=== PATIENT | male | born 1990 | race African-American/Black ===

== ENCOUNTER 2018-09-15 11:25 | Inpatient (IN) | payer SELFPAY ==
[~2018-09-15] VITALS: Ht 170.2 cm; Wt 75.7 kg
[~2018-09-15 11:25] MED LIST: CEPH-264 PO
[2018-09-15] MEDS ORDERED: IV NORMAL SALINE 1000ML BAG 1,000 ML IV SCH (11:58)
[2018-09-15] MEDS ORDERED: PROCHLORPERAZINE 10 MG/2 ML VIAL. IV ONE (12:00)
[2018-09-15] MEDS ORDERED: HYOSCYAMINE 0.125 MG TAB.RAPDIS PO ONE (12:00)
[2018-09-15 12:43] LABS: BILIRUBIN,URINE NEGATIVE (NEG); CLARITY,URINE CLEAR; COLOR,URINE YELLOW; NITRITE,URINE NEGATIVE (NEG); PROTEIN,URINE 100 mg/dL (NEG-TRACE); UROBILINOGEN,URINE 0.2 mg/dL (0.2 mg/dL)
[2018-09-15 12:43] LABS: BASO % 0 % (0-3); EOS % 0 % (0-3); HEMOGLOBIN 13.6 g/dL (13.0-17.5); LYMPH # 0.6 x10^3/uL (1.0-4.8); LYMPH % 5 % (24-48); MEAN CORPUSCULAR HEMOGLOBIN 27 pg (25-35); MEAN CORPUSCULAR HGB CONC 32 g/dL (31-37); MEAN CORPUSCULAR VOLUME 84 fL (79-100); MONO # 0.7 x10^3/uL (0.0-1.1); MONO % 6 % (0-9); NEUT # 10.8 x10^3uL (1.8-7.7); NEUT % 90 % (31-73); PLATELET COUNT 295 x10^3/uL (140-400); RED BLOOD COUNT 5.03 x10^6/uL (4.30-5.70); RED CELL DISTRIBUTION WIDTH 14.1 % (11.5-14.5); WHITE BLOOD COUNT 12.1 x10^3/uL (4.0-11.0)
[2018-09-15 12:49] LABS: CALCIUM 9.3 mg/dL (8.5-10.1); CREATININE 0.9 mg/dL (0.7-1.3); GFR 123.4
[2018-09-15 12:52] LABS: HYALINE CASTS, URINE FEW /HPF; SQUAMOUS EPITHELIAL CELL,UR FEW /LPF
[2018-09-15 12:52] LABS: PROTHROMBIN TIME PATIENT 11.1 SEC (11.7-14.0)
[2018-09-15 12:53] LABS: BACTERIA,URINE 0 /HPF (0-FEW); WBC,URINE 0 /HPF (0-4)
[2018-09-15 13:18] LABS: % ATYL 2 % (0-0); % BANDS 14 % (0-9); % LYMPHS 6 % (24-48); % MONOS 1 % (0-10); % SEGS 77 % (35-66); ALBUMIN 3.8 g/dL (3.4-5.0); HYPOCHROMIA SLIGHT; PLT ESTIMATE ADEQUATE (ADEQUATE); STOMATOCYTES FEW; TOTAL BILIRUBIN 0.5 mg/dL (0.2-1.0); TOTAL PROTEIN 7.5 g/dL (6.4-8.2)
--- NOTE | 2018-09-15 13:39 | PHYS DOC ---
Past Medical History Past Medical History: No Pertinent History Past Surgical History: No Surgical History Smoking: Cigarettes Alcohol Use: Occasionally Additional Information: 4 or 5 drinks, 2-3 days a week Drug Use: None Adult General Chief Complaint Chief Complaint: ABDOMINAL PAIN HPI HPI Patient is a 27 year old male who presents with upper abdominal pain and nausea for the past 24-36 hours. It has been getting worse over time. No radiation of the discomfort. Patient has been unable to tolerate any oral intake since approximately noon yesterday. No blood in the emesis. No diarrhea. Patient had a beer early on in the course of this with out any significant change in the discomfort.[] Review of Systems Review of Systems Constitutional: Denies fever or chills [] Eyes: Denies change in visual acuity, redness, or eye pain [] HENT: Denies nasal congestion or sore throat [] Respiratory: Denies cough or shortness of breath [] Cardiovascular: No chest pain or palpitations[] GI: See history of present illness[] : Denies dysuria or hematuria [] Musculoskeletal: Denies back pain or joint pain [] Integument: Denies rash or skin lesions [] Neurologic: Denies headache, focal weakness or sensory changes [] Endocrine: Denies polyuria or polydipsia [] All other systems were reviewed and found to be within normal limits, except as documented in this note. Current Medications Current Medications Current Medications Medications (Trade) Dose Ordered Sig/Rohith Start Time Stop Time Status Last Admin Dose Admin Hyoscyamine (Anaspaz) 0.125 mg ONCE ONCE 09/15/18 12:00 09/15/18 12:01 DC 09/15/18 12:28 0.125 MG Morphine Sulfate (Morphine Sulfate) 4 mg 1X ONCE 09/15/18 13:45 09/15/18 13:46 DC Prochlorperazine Edisylate (Compazine) 5 mg 1X ONCE 09/15/18 12:00 09/15/18 12:01 DC 09/15/18 12:29 5 MG Sodium Chloride 1,000 ml @ 125 mls/hr 1X ONCE 09/15/18 13:45 09/15/18 21:44 Allergies Allergies Allergies Coded Allergies Type Severity Reaction Last Updated Verified No Known Drug Allergies 06/20/16 No Physical Exam Physical Exam Constitutional: Well developed, well nourished, no acute distress, non-toxic appearance. [] HENT: Normocephalic, atraumatic, bilateral external ears normal, oropharynx moist, no oral exudates, nose normal. [] Eyes: PERRLA, EOMI, conjunctiva normal, no discharge. [] Neck: Normal range of motion, no tenderness, supple, no stridor. [] Cardiovascular:Heart rate regular rhythm, no murmur [] Lungs & Thorax: Bilateral breath sounds clear to auscultation [] Abdomen: Bowel sounds normal, soft, gastric tenderness, no rebound, no guarding , no rigidity, no masses, no pulsatile masses. [] Skin: Warm, dry, no erythema, no rash. [] Back: No tenderness, no CVA tenderness. [] Extremities: No tenderness, no cyanosis, no clubbing, ROM intact, no edema. [] Neurologic: Alert and oriented X 3, normal motor function, normal sensory function, no focal deficits noted. [] Psychologic: Affect normal, judgement normal, mood normal. [] Current Patient Data Vital Signs Vital Signs Date Time Temp Pulse Resp B/P (MAP) Pulse Ox O2 Delivery O2 Flow Rate FiO2 09/15/18 11:43 98.2 75 18 137/91 (106) 100 Room Air 98.2 Lab Values Laboratory Tests Test 09/15/18 12:20 09/15/18 12:30 Urine Collection Type Unknown Urine Color Yellow Urine Clarity Clear Urine pH 6.0 Urine Specific [place] >=1.030 Urine Protein 100 mg/dL (NEG-TRACE) Urine Glucose (UA) Negative mg/dL (NEG) Urine Ketones (Stick) Negative mg/dL (NEG) Urine Blood Negative (NEG) Urine Nitrite Negative (NEG) Urine Bilirubin Negative (NEG) Urine Urobilinogen Dipstick 0.2 mg/dL (0.2 mg/dL) Urine Leukocyte Esterase Negative (NEG) Urine RBC 3-5 /HPF (0-2) Urine WBC 0 /HPF (0-4) Urine Squamous Epithelial Cells Few /LPF Urine Bacteria 0 /HPF (0-FEW) Urine Hyaline Casts Few /HPF Urine Mucus Marked /LPF White Blood Count 12.1 x10^3/uL (4.0-11.0) H Red Blood Count 5.03 x10^6/uL (4.30-5.70) Hemoglobin 13.6 g/dL (13.0-17.5) Hematocrit 42.0 % (39.0-53.0) Mean Corpuscular Volume 84 fL (79-100) Mean Corpuscular Hemoglobin 27 pg (25-35) Mean Corpuscular Hemoglobin Concent 32 g/dL (31-37) Red Cell Distribution Width 14.1 % (11.5-14.5) Platelet Count 295 x10^3/uL (140-400) Neutrophils (%) (Auto) 90 % (31-73) H Lymphocytes (%) (Auto) 5 % (24-48) L Monocytes (%) (Auto) 6 % (0-9) Eosinophils (%) (Auto) 0 % (0-3) Basophils (%) (Auto) 0 % (0-3) Neutrophils # (Auto) 10.8 x10^3uL (1.8-7.7) H Lymphocytes # (Auto) 0.6 x10^3/uL (1.0-4.8) L Monocytes # (Auto) 0.7 x10^3/uL (0.0-1.1) Eosinophils # (Auto) 0.0 x10^3/uL (0.0-0.7) Basophils # (Auto) 0.0 x10^3/uL (0.0-0.2) Segmented Neutrophils % 77 % (35-66) H Band Neutrophils % 14 % (0-9) H Lymphocytes % 6 % (24-48) L Atypical Lymphocytes % (Manual) 2 % (0-0) H Monocytes % 1 % (0-10) Platelet Estimate Adequate (ADEQUATE) Large Platelets Few Hypochromasia Slight Stomatocytes Few Prothrombin Time 11.1 SEC (11.7-14.0) L Prothrombin Time INR 0.8 (0.8-1.1) Sodium Level 136 mmol/L (136-145) Potassium Level 4.0 mmol/L (3.5-5.1) Chloride Level 98 mmol/L (98-107) Carbon Dioxide Level 29 mmol/L (21-32) Anion Gap 9 (6-14) Blood Urea Nitrogen 13 mg/dL (8-26) Creatinine 0.9 mg/dL (0.7-1.3) Estimated GFR (Cockcroft-Gault) 123.4 BUN/Creatinine Ratio 14 (6-20) Glucose Level 132 mg/dL (70-99) H Calcium Level 9.3 mg/dL (8.5-10.1) Total Bilirubin 0.5 mg/dL (0.2-1.0) Aspartate Amino Transferase (AST) 34 U/L (15-37) Alanine Aminotransferase (ALT) 38 U/L (16-63) Alkaline Phosphatase 81 U/L (46-116) Total Protein 7.5 g/dL (6.4-8.2) Albumin 3.8 g/dL (3.4-5.0) Albumin/Globulin Ratio 1.0 (1.0-1.7) Lipase 98956 U/L (73-393) H Laboratory Tests 09/15/18 12:30 Laboratory Tests 09/15/18 12:30 EKG EKG [] Radiology/Procedures Radiology/Procedures [] Course & Med Decision Making Course & Med Decision Making Pertinent Labs and Imaging studies reviewed. (See chart for details) ED course: Patient arrived, was placed in bed, and tolerated exam well. Patient had IV access established, was given IV fluids, antiemetics, and antispasmodics which mildly improved his discomfort. After the return of the elevated lipase, additional imaging studies were ordered. Discussed the findings and plan with the patient who voiced understanding. All questions were answered. Consultation was made with the hospitalist service. He graciously accepted him for admission. He was admitted in improved condition. Social making: Patient appears to have an elevated lipase consistent with pancreatitis.[] Dragon Disclaimer Dragon Disclaimer This electronic medical record was generated, in whole or in part, using a voice recognition dictation system. Departure Departure Impression: Primary Impression: Pancreatitis Disposition: 09 ADMITTED INPATIENT Admitting Physician: Vinnie Hall Condition: IMPROVED Referrals: NO PCP (PCP) Problem Qualifiers Primary Impression: Pancreatitis Chronicity: acute Pancreatitis type: unspecified pancreatitis type Acute pancreatitis complication: unspecified Qualified Codes: K85.90 - Acute pancreatitis without necrosis or infection, unspecified MAINE UGARTE DO Sep 15, 2018 13:39
[2018-09-15] MEDS ORDERED: IV NORMAL SALINE 1000ML BAG 1,000 ML IV ONE (13:45)
[2018-09-15] MEDS ORDERED: MORPHINE SULFATE 4 MG/ML VIAL. IV ONE (13:45)
[2018-09-15] MEDS ORDERED: ACETAMINOPHEN 325 MG TABLET. PO PRN (14:15)
[2018-09-15] MEDS ORDERED: ONDANSETRON PF 4 MG/2 ML VIAL. IV PRN (14:15)
--- NOTE | 2018-09-15 14:26 | RAD ---
Examination: Acute abdomen series HISTORY: History of upper abdominal pain for 2 days COMPARISON: None available. FINDINGS: The cardiomediastinal silhouette grossly appears unremarkable. There is no acute infiltrate or visualized pneumothorax identified. Mild air distended small bowel loops. Feces and gas noted in the colon and the rectum. IMPRESSION: 1. No acute cardiopulmonary findings. 2. Nonspecific bowel gas pattern. Electronically signed by: Lj Alexander MD (09/15/2018 2:23 PM) [facility]
[2018-09-15] MEDS ORDERED: CONTRAST GIVEN. MC PRN (14:30)
[2018-09-15] MEDS ORDERED: IOHEXOL 300 MG/ML 100ML VIAL. IV ONE (14:30)
--- NOTE | 2018-09-15 14:48 | PDOC1 ---
History and Physical Date of Admission Date of Admission DATE: 09/15/18 TIME: 14:47 Identification/Chief Complaint Chief Complaint ssen in er with upper abdominal pain and nausea for the past 24-36 hours. , getting MUCH worse over time. No radiation of the discomfort. Patient has been unable to tolerate any oral intake since approximately noon 09/14 No blood in the emesis. No diarrhea. Patient had a beer early on in the coursen usually drinks heavily daily CT REVIEWED PANCREAS APPEARS INFLAMMEN IN MY PERSONAL REVIEW, IV MORPHINE ORDERED FOR PAIN CONTROL Past Medical History Past Medical History Past Medical History Past Medical History Past Medical History: No Pertinent History Past Surgical History: No Surgical History Smoking: Cigarettes Alcohol Use: Occasionally Additional Information: 4 or 5 drinks, 2-3 days a week Drug Use: None FHX ALCOHOL ABUSE/ TOBACCO USE Cardiovascular: No pertinent hx Pulmonary: No pertinent hx Endocrine: No pertinent hx Dermatology: No pertinent hx Family History Family History: Alcohol Abuse Social History Smoke: <1 pack per day ALCOHOL: heavy Drugs: None Current Medications Current Medications Current Medications Sodium Chloride 1,000 ml @ 1,000 mls/hr Q1H IV Last administered on 09/15/18at 12:29; Start 09/15/18 at 11:58; Stop 09/15/18 at 12:57; Status DC Prochlorperazine Edisylate (Compazine) 5 mg 1X ONCE IV Last administered on 09/15/18at 12:29; Start 09/15/18 at 12:00; Stop 09/15/18 at 12:01; Status DC Hyoscyamine (Anaspaz) 0.125 mg ONCE ONCE PO Last administered on 09/15/18at 12: 28; Start 09/15/18 at 12:00; Stop 09/15/18 at 12:01; Status DC Sodium Chloride 1,000 ml @ 125 mls/hr 1X ONCE IV ; Start 09/15/18 at 13:45; Stop 09/15/18 at 21:44 Morphine Sulfate (Morphine Sulfate) 4 mg 1X ONCE IV Last administered on at 14:09; Start 09/15/18 at 13:45; Stop 09/15/18 at 13:46; Status DC Ondansetron HCl (Zofran) 4 mg PRN Q8HRS PRN IV NAUSEA/VOMITING; Start 09/15/18 at 14:15; Stop 09/16/18 at 14:14 Morphine Sulfate (Morphine Sulfate) 4 mg PRN Q2HR PRN IV PAIN; Start 09/15/18 at 14:15; Stop 09/16/18 at 14:14 Sodium Chloride 1,000 ml @ 150 mls/hr Q6H40M IV ; Start 09/15/18 at 14:06; Stop 09/16/18 at 14:05 Acetaminophen (Tylenol) 650 mg PRN Q4HRS PRN PO FEVER; Start 09/15/18 at 14:15; Stop 09/16/18 at 14:14 Iohexol (Omnipaque 300 Mg/ml) 75 ml 1X ONCE IV Last administered on 09/15/18at 14:28; Start 09/15/18 at 14:30; Stop 09/15/18 at 14:31; Status DC Info (CONTRAST GIVEN -- Rx MONITORING) 1 each PRN DAILY PRN MC SEE COMMENTS; Start 09/15/18 at 14:30; Stop 09/17/18 at 14:29 Active Scripts Active Keflex (Cephalexin) 500 Mg Capsule 1 Cap PO TID 10 Days Allergies Allergies: Coded Allergies: No Known Drug Allergies (Unverified , 06/20/16) ROS Review of System Review of Systems Review of Systems Constitutional: Denies fever or chills [] Eyes: Denies change in visual acuity, redness, or eye pain [] HENT: Denies nasal congestion or sore throat [] Respiratory: Denies cough or shortness of breath [] Cardiovascular: No chest pain or palpitations[] GI: See history of present illness[pos severe pain, vomiting] : Denies dysuria or hematuria [] Musculoskeletal: Denies back pain or joint pain [] Integument: Denies rash or skin lesions [] Neurologic: Denies headache, focal weakness or sensory changes [] Endocrine: Denies polyuria or polydipsia [] 14 pt systems were reviewed and found to be within normal limits, except as documented PSYCHOLOGICAL ROS: No: Anxiety, Behavioral Disorder, Concentration difficultie , Decreased libido, Depression, Disorientation, Hallucinations, Hostility, Irritablity, Memory difficulties, Mood Swings, Obsessive thoughts, Physical abuse, Sexual abuse, Sleep disturbances, Suicidal ideation, Other Hematological and Lymphatic: No: Bleeding Problems, Blood Clots, Blood Transfusions, Brusing, Night Sweats, Pallor, Swollen Lymph Nodes, Other Respiratory: No: Cough, Hemoptysis, Orthopnea, Pleuritic Pain, Shortness of breath, SOB with excertion, Sputum Changes, Stridor, Tachypnea, Wheezing, Other Gastrointestinal: Yes Nausea, Yes Vomiting, Yes Abdominal Pain; No Diarrhea, No Constipation, No Melena, No Hematochezia, No Other Musculoskeletal: No Gait Disturbance, No Joint Pain, No Joint Stiffness, No Joint Swelling, No Muscle Pain, No Muscular Weakness, No Pain In:, No Swelling In:, No Other Neurological: No Behavorial Changes, No Bowel/Bladder ControlChng, No Confusion , No Dizziness, No Gait Disturbance, No Headaches, No Impaired Coord/balance, No Memory Loss, No Numbness/Tingling, No Seizures, No Speech Problems, No Tremors, No Visual Changes, No Weakness, No Other Physical Exam Physical Exam Physical Exam Physical Exam Constitutional: Well developed, well nourished, mod acute distress, non-toxic appearance. [] HENT: Normocephalic, atraumatic, bilateral external ears normal, oropharynx moist, no oral exudates, nose normal. [] Eyes: PERRLA, EOMI, conjunctiva normal, no discharge. [] Neck: Normal range of motion, no tenderness, supple, no stridor. [] Cardiovascular:Heart rate regular rhythm, no murmur [] Lungs & Thorax: Bilateral breath sounds clear to auscultation [] Abdomen: Bowel sounds normal, soft, gastric tenderness, no rebound, no guarding , no rigidity, no masses, no pulsatile masses. [] Skin: Warm, dry, no erythema, no rash. [] Back: No tenderness, no CVA tenderness. [] Extremities: No tenderness, no cyanosis, no clubbing, ROM intact, no edema. [] Neurologic: Alert and oriented X 3, normal motor function, normal sensory function, no focal deficits noted. [] Psychologic: Affect normal, judgement normal, mood normal. [] General: Alert, Oriented X3, Cooperative, moderate distress HEENT: Atraumatic, PERRLA Lungs: Clear to auscultation, Normal air movement Heart: RRR, no gallops, no murmurs Abdomen: Normal bowel sounds, Other (epigastric tender no rebound) Rectal Exam: not examined PELVIC: Examination not indicated Extremities: No cyanosis, No edema Skin: No breakdown Neuro: Normal speech, Strength at 5/5 X4 ext, Sensation intact, Cranial nerves 3-12 NL Psych/Mental Status: Mental status NL, Mood NL Vitals Vitals Vital Signs Date Time Temp Pulse Resp B/P (MAP) Pulse Ox O2 Delivery O2 Flow Rate FiO2 09/15/18 14:15 70 18 132/79 (96) 100 Room Air 09/15/18 11:43 98.2 98.2 Labs Labs Laboratory Tests Test 09/15/18 12:20 09/15/18 12:30 Urine Collection Type Unknown Urine Color Yellow Urine Clarity Clear Urine pH 6.0 Urine Specific [place] >=1.030 Urine Protein 100 mg/dL (NEG-TRACE) Urine Glucose (UA) Negative mg/dL (NEG) Urine Ketones (Stick) Negative mg/dL (NEG) Urine Blood Negative (NEG) Urine Nitrite Negative (NEG) Urine Bilirubin Negative (NEG) Urine Urobilinogen Dipstick 0.2 mg/dL (0.2 mg/dL) Urine Leukocyte Esterase Negative (NEG) Urine RBC 3-5 /HPF (0-2) Urine WBC 0 /HPF (0-4) Urine Squamous Epithelial Cells Few /LPF Urine Bacteria 0 /HPF (0-FEW) Urine Hyaline Casts Few /HPF Urine Mucus Marked /LPF White Blood Count 12.1 x10^3/uL (4.0-11.0) Red Blood Count 5.03 x10^6/uL (4.30-5.70) Hemoglobin 13.6 g/dL (13.0-17.5) Hematocrit 42.0 % (39.0-53.0) Mean Corpuscular Volume 84 fL (79-100) Mean Corpuscular Hemoglobin 27 pg (25-35) Mean Corpuscular Hemoglobin Concent 32 g/dL (31-37) Red Cell Distribution Width 14.1 % (11.5-14.5) Platelet Count 295 x10^3/uL (140-400) Neutrophils (%) (Auto) 90 % (31-73) Lymphocytes (%) (Auto) 5 % (24-48) Monocytes (%) (Auto) 6 % (0-9) Eosinophils (%) (Auto) 0 % (0-3) Basophils (%) (Auto) 0 % (0-3) Neutrophils # (Auto) 10.8 x10^3uL (1.8-7.7) Lymphocytes # (Auto) 0.6 x10^3/uL (1.0-4.8) Monocytes # (Auto) 0.7 x10^3/uL (0.0-1.1) Eosinophils # (Auto) 0.0 x10^3/uL (0.0-0.7) Basophils # (Auto) 0.0 x10^3/uL (0.0-0.2) Segmented Neutrophils % 77 % (35-66) Band Neutrophils % 14 % (0-9) Lymphocytes % 6 % (24-48) Atypical Lymphocytes % (Manual) 2 % (0-0) Monocytes % 1 % (0-10) Platelet Estimate Adequate (ADEQUATE) Large Platelets Few Hypochromasia Slight Stomatocytes Few Prothrombin Time 11.1 SEC (11.7-14.0) Prothromb Time International Ratio 0.8 (0.8-1.1) Sodium Level 136 mmol/L (136-145) Potassium Level 4.0 mmol/L (3.5-5.1) Chloride Level 98 mmol/L (98-107) Carbon Dioxide Level 29 mmol/L (21-32) Anion Gap 9 (6-14) Blood Urea Nitrogen 13 mg/dL (8-26) Creatinine 0.9 mg/dL (0.7-1.3) Estimated GFR (Cockcroft-Gault) 123.4 BUN/Creatinine Ratio 14 (6-20) Glucose Level 132 mg/dL (70-99) Calcium Level 9.3 mg/dL (8.5-10.1) Total Bilirubin 0.5 mg/dL (0.2-1.0) Aspartate Amino Transf (AST/SGOT) 34 U/L (15-37) Alanine Aminotransferase (ALT/SGPT) 38 U/L (16-63) Alkaline Phosphatase 81 U/L (46-116) Total Protein 7.5 g/dL (6.4-8.2) Albumin 3.8 g/dL (3.4-5.0) Albumin/Globulin Ratio 1.0 (1.0-1.7) Lipase 25427 U/L (73-393) Laboratory Tests Test 09/15/18 12:20 09/15/18 12:30 Urine Collection Type Unknown Urine Color Yellow Urine Clarity Clear Urine pH 6.0 Urine Specific [place] >=1.030 Urine Protein 100 mg/dL (NEG-TRACE) Urine Glucose (UA) Negative mg/dL (NEG) Urine Ketones (Stick) Negative mg/dL (NEG) Urine Blood Negative (NEG) Urine Nitrite Negative (NEG) Urine Bilirubin Negative (NEG) Urine Urobilinogen Dipstick 0.2 mg/dL (0.2 mg/dL) Urine Leukocyte Esterase Negative (NEG) Urine RBC 3-5 /HPF (0-2) Urine WBC 0 /HPF (0-4) Urine Squamous Epithelial Cells Few /LPF Urine Bacteria 0 /HPF (0-FEW) Urine Hyaline Casts Few /HPF Urine Mucus Marked /LPF White Blood Count 12.1 x10^3/uL (4.0-11.0) Red Blood Count 5.03 x10^6/uL (4.30-5.70) Hemoglobin 13.6 g/dL (13.0-17.5) Hematocrit 42.0 % (39.0-53.0) Mean Corpuscular Volume 84 fL (79-100) Mean Corpuscular Hemoglobin 27 pg (25-35) Mean Corpuscular Hemoglobin Concent 32 g/dL (31-37) Red Cell Distribution Width 14.1 % (11.5-14.5) Platelet Count 295 x10^3/uL (140-400) Neutrophils (%) (Auto) 90 % (31-73) Lymphocytes (%) (Auto) 5 % (24-48) Monocytes (%) (Auto) 6 % (0-9) Eosinophils (%) (Auto) 0 % (0-3) Basophils (%) (Auto) 0 % (0-3) Neutrophils # (Auto) 10.8 x10^3uL (1.8-7.7) Lymphocytes # (Auto) 0.6 x10^3/uL (1.0-4.8) Monocytes # (Auto) 0.7 x10^3/uL (0.0-1.1) Eosinophils # (Auto) 0.0 x10^3/uL (0.0-0.7) Basophils # (Auto) 0.0 x10^3/uL (0.0-0.2) Segmented Neutrophils % 77 % (35-66) Band Neutrophils % 14 % (0-9) Lymphocytes % 6 % (24-48) Atypical Lymphocytes % (Manual) 2 % (0-0) Monocytes % 1 % (0-10) Platelet Estimate Adequate (ADEQUATE) Large Platelets Few Hypochromasia Slight Stomatocytes Few Prothrombin Time 11.1 SEC (11.7-14.0) Prothromb Time International Ratio 0.8 (0.8-1.1) Sodium Level 136 mmol/L (136-145) Potassium Level 4.0 mmol/L (3.5-5.1) Chloride Level 98 mmol/L (98-107) Carbon Dioxide Level 29 mmol/L (21-32) Anion Gap 9 (6-14) Blood Urea Nitrogen 13 mg/dL (8-26) Creatinine 0.9 mg/dL (0.7-1.3) Estimated GFR (Cockcroft-Gault) 123.4 BUN/Creatinine Ratio 14 (6-20) Glucose Level 132 mg/dL (70-99) Calcium Level 9.3 mg/dL (8.5-10.1) Total Bilirubin 0.5 mg/dL (0.2-1.0) Aspartate Amino Transf (AST/SGOT) 34 U/L (15-37) Alanine Aminotransferase (ALT/SGPT) 38 U/L (16-63) Alkaline Phosphatase 81 U/L (46-116) Total Protein 7.5 g/dL (6.4-8.2) Albumin 3.8 g/dL (3.4-5.0) Albumin/Globulin Ratio 1.0 (1.0-1.7) Lipase 01763 U/L (73-393) VTE Prophylaxis Ordered VTE Prophylaxis Devices: Yes VTE Pharmacological Prophylaxi: Yes Assessment/Plan Assessment/Plan impression 1. severe acute pancreatitis SEC ETOH ABUSE 2. severe chronic alcohol abuse 3. INTRACTABLE ABD PAIN 4. INTRACTABLE VOMITING 5. SIRS plan npo iv fluid support, banana bag alcohol withdrawal precautions GI CONSULT GB SONO IV ZOFRAN 4 MG Q 4 HRS PRN DVT PROPHYLAXIS GI PROPHYLAXIS IV PROTONIX I HAVE PERSONALLY REVIEWED THE CT IMAGES, PANCREAS APPEARS INFLAMMED NEHEMIAS SAINI MD Sep 15, 2018 14:48
--- NOTE | 2018-09-15 14:57 | RAD ---
Examination: CT of the abdomen pelvis with IV contrast HISTORY: History of upper abdominal pain, elevated lipase COMPARISON: None available TECHNIQUE: Axial CT images of the abdomen pelvis were performed with IV contrast. Coronal and sagittal reformats are performed Exposure: One or more of the following individualized dose reduction techniques were utilized for this examination: 1. Automated exposure control 2. Adjustment of the mA and/or kV according to patient size 3. Use of iterative reconstruction technique FINDINGS: Minimal bibasilar lung atelectasis. No evidence of free air identified in the abdomen. There is mild decreased attenuation noted in the liver likely hepatic steatosis. The visualized spleen, adrenals grossly appears unremarkable. The gallbladder is mildly distended. Severe inflammatory fat stranding identified about the pancreas. The gallbladder is mildly distended. The small bowel is nondilated. The appendix is normal. Feces and gas noted in the colon. Urinary bladder is mildly distended. The bilateral kidneys enhance symmetrically. No evidence of lytic bony destructive lesion identified. IMPRESSION: 1. Severe inflammatory fat stranding identified about the pancreas likely acute pancreatitis. Electronically signed by: Lj Alexander MD (09/15/2018 2:54 PM) [facility]
[2018-09-15 15:00] VITALS: BP 119/94
[2018-09-15] MEDS ORDERED: LORazepam 1 MG TABLET PO PRN (15:00)
[2018-09-15] MEDS ORDERED: HALOPERIDOL LACTATE 5 MG/ML VIAL. IVP PRN (15:00)
[2018-09-15] MEDS ORDERED: diphenhydrAMINE 50 MG/ML VIAL IVP PRN (15:00)
[2018-09-15] MEDS ORDERED: cloNIDine HCL 0.1 MG TABLET PO PRN (15:00)
--- NOTE | 2018-09-15 15:03 | RAD ---
Examination: Ultrasound abdomen limited HISTORY: History of upper abdominal pain, elevated lipase COMPARISON: None available FINDINGS: The right lobe of the liver measures 17.2 cm. The common bile duct measures 2.2 mm in transverse dimension. The pancreas is not well-visualized. The visualized IVC is within normal limits. Right kidney measures 10.7 cm in length. The gallbladder wall thickness measures 1 mm. No evidence of gallstones identified. IMPRESSION: 1. The pancreas could not be visualized due to bowel gas. 2. No evidence of gallstones. Electronically signed by: Lj Alexander MD (09/15/2018 3:00 PM) [facility]
--- NOTE | 2018-09-15 15:20 | NUR ---
Pt arrived on the unit from ER by wc at 1500. Pt rated pain at a 6. A&Ox 4. Placed on tele. Oriented to call light system, fall policy, and visiting hours. Bed locked and in lowest position. Consulted called and orders received. Pt will be NPO and can have ice chips. If he is able to tolerate ice chips said to advance diet to CLD. VSS. Will continue to monitor.
[2018-09-15] MEDS: IV NORMAL SALINE 1000ML BAG 1,000 ML IV SCH (15:38)
[2018-09-15] MEDS: MULTIVIT INFUSN,ADULT 4,VIT K 10 ML, THIAMINE INJ 100 MG, FOLIC ACID INJ 1 MG in IV NOR... IV SCH (15:39)
[2018-09-15] MEDS: MORPHINE SULFATE 4 MG/ML VIAL. IV PRN ×3 (15:47→20:43)
[2018-09-15 19:00] VITALS: BP 117/83
[2018-09-15] MEDS: ENOXAPARIN 40 MG/0.4 ML SYRINGE. SQ SCH (22:11)
[2018-09-15 22:59] VITALS: BP 126/83
[2018-09-16 02:39] VITALS: BP 117/78
[2018-09-16] MEDS: MORPHINE SULFATE 4 MG/ML VIAL. IV PRN ×6 (02:44→20:34)
[2018-09-16] MEDS: IV NORMAL SALINE 1000ML BAG 1,000 ML IV SCH ×3 (02:45→08:35)
[2018-09-16 07:00] VITALS: BP 116/86
[2018-09-16 07:29] LABS: BASO % 0 % (0-3); EOS % 0 % (0-3); HEMATOCRIT 40.7 % (39.0-53.0); HEMOGLOBIN 13.2 g/dL (13.0-17.5); LYMPH # 1.4 x10^3/uL (1.0-4.8); LYMPH % 19 % (24-48); MEAN CORPUSCULAR HEMOGLOBIN 27 pg (25-35); MEAN CORPUSCULAR HGB CONC 33 g/dL (31-37); MEAN CORPUSCULAR VOLUME 84 fL (79-100); MONO # 0.7 x10^3/uL (0.0-1.1); MONO % 9 % (0-9); NEUT # 5.1 x10^3uL (1.8-7.7); NEUT % 71 % (31-73); PLATELET COUNT 268 x10^3/uL (140-400); RED BLOOD COUNT 4.88 x10^6/uL (4.30-5.70); RED CELL DISTRIBUTION WIDTH 14.1 % (11.5-14.5); WHITE BLOOD COUNT 7.2 x10^3/uL (4.0-11.0)
[2018-09-16] MEDS ORDERED: PANTOPRAZOLE IV PUSH 40 MG VIAL. IVP SCH (07:30)
[2018-09-16 07:54] LABS: ALBUMIN/GLOBULIN RATIO 0.9 (1.0-1.7); CALCIUM 8.4 mg/dL (8.5-10.1); CREATININE 0.9 mg/dL (0.7-1.3); GFR 123.4; POTASSIUM 4.1 mmol/L (3.5-5.1); TOTAL BILIRUBIN 0.7 mg/dL (0.2-1.0); TOTAL PROTEIN 6.4 g/dL (6.4-8.2)
--- NOTE | 2018-09-16 08:04 | PDOC ---
PROGRESS NOTES Chief Complaint Chief Complaint Severe acute pancreatitis SEC ETOH ABUSE Severe chronic alcohol abuse INTRACTABLE ABD PAIN INTRACTABLE VOMITING SIRS Polysubstance intoxication History of Present Illness History of Present Illness 27yo M admitted with upper abdominal pain and nausea for the past 24-36 hours, found with lipase > 12K and fat stranding surrounding pancreas. Patient has been unable to tolerate any oral intake since approximately noon 3/ No blood in the emesis. No diarrhea. Patient had a beer prior to event, usually drinks heavily daily He is amenable to "stopping partying" today. Does not wish to be seen by PAT team. He has 4/10 pain after morphine administration. Passing flatus, no BM. A/P: IV morphine, IV zofran IVF, banana bag, encourage substance abuse resources Pancreatitis care Wait to advance diet. Vitals Vitals Vital Signs Date Time Temp Pulse Resp B/P (MAP) Pulse Ox O2 Delivery O2 Flow Rate FiO2 09/16/18 07:00 98.1 72 18 116/86 (96) 99 Room Air 98.1 Physical Exam General: Alert, Oriented X3, Cooperative, moderate distress Abdomen: Normal bowel sounds, Other (epigastric tender no rebound) Extremities: No cyanosis, No edema Skin: No breakdown Labs LABS Laboratory Tests Test 09/15/18 12:20 09/15/18 12:30 09/16/18 07:10 Urine Collection Type Unknown Urine Color Yellow Urine Clarity Clear Urine pH 6.0 Urine Specific [place] >=1.030 Urine Protein 100 mg/dL (NEG-TRACE) Urine Glucose (UA) Negative mg/dL (NEG) Urine Ketones (Stick) Negative mg/dL (NEG) Urine Blood Negative (NEG) Urine Nitrite Negative (NEG) Urine Bilirubin Negative (NEG) Urine Urobilinogen Dipstick 0.2 mg/dL (0.2 mg/dL) Urine Leukocyte Esterase Negative (NEG) Urine RBC 3-5 /HPF (0-2) Urine WBC 0 /HPF (0-4) Urine Squamous Epithelial Cells Few /LPF Urine Bacteria 0 /HPF (0-FEW) Urine Hyaline Casts Few /HPF Urine Mucus Marked /LPF White Blood Count 12.1 x10^3/uL (4.0-11.0) 7.2 x10^3/uL (4.0-11.0) Red Blood Count 5.03 x10^6/uL (4.30-5.70) 4.88 x10^6/uL (4.30-5.70) Hemoglobin 13.6 g/dL (13.0-17.5) 13.2 g/dL (13.0-17.5) Hematocrit 42.0 % (39.0-53.0) 40.7 % (39.0-53.0) Mean Corpuscular Volume 84 fL (79-100) 84 fL (79-100) Mean Corpuscular Hemoglobin 27 pg (25-35) 27 pg (25-35) Mean Corpuscular Hemoglobin Concent 32 g/dL (31-37) 33 g/dL (31-37) Red Cell Distribution Width 14.1 % (11.5-14.5) 14.1 % (11.5-14.5) Platelet Count 295 x10^3/uL (140-400) 268 x10^3/uL (140-400) Neutrophils (%) (Auto) 90 % (31-73) 71 % (31-73) Lymphocytes (%) (Auto) 5 % (24-48) 19 % (24-48) Monocytes (%) (Auto) 6 % (0-9) 9 % (0-9) Eosinophils (%) (Auto) 0 % (0-3) 0 % (0-3) Basophils (%) (Auto) 0 % (0-3) 0 % (0-3) Neutrophils # (Auto) 10.8 x10^3uL (1.8-7.7) 5.1 x10^3uL (1.8-7.7) Lymphocytes # (Auto) 0.6 x10^3/uL (1.0-4.8) 1.4 x10^3/uL (1.0-4.8) Monocytes # (Auto) 0.7 x10^3/uL (0.0-1.1) 0.7 x10^3/uL (0.0-1.1) Eosinophils # (Auto) 0.0 x10^3/uL (0.0-0.7) 0.0 x10^3/uL (0.0-0.7) Basophils # (Auto) 0.0 x10^3/uL (0.0-0.2) 0.0 x10^3/uL (0.0-0.2) Segmented Neutrophils % 77 % (35-66) Band Neutrophils % 14 % (0-9) Lymphocytes % 6 % (24-48) Atypical Lymphocytes % (Manual) 2 % (0-0) Monocytes % 1 % (0-10) Platelet Estimate Adequate (ADEQUATE) Large Platelets Few Hypochromasia Slight Stomatocytes Few Prothrombin Time 11.1 SEC (11.7-14.0) Prothromb Time International Ratio 0.8 (0.8-1.1) Sodium Level 136 mmol/L (136-145) Potassium Level 4.0 mmol/L (3.5-5.1) Chloride Level 98 mmol/L (98-107) Carbon Dioxide Level 29 mmol/L (21-32) Anion Gap 9 (6-14) Blood Urea Nitrogen 13 mg/dL (8-26) Creatinine 0.9 mg/dL (0.7-1.3) Estimated GFR (Cockcroft-Gault) 123.4 BUN/Creatinine Ratio 14 (6-20) Glucose Level 132 mg/dL (70-99) Calcium Level 9.3 mg/dL (8.5-10.1) Total Bilirubin 0.5 mg/dL (0.2-1.0) Aspartate Amino Transf (AST/SGOT) 34 U/L (15-37) Alanine Aminotransferase (ALT/SGPT) 38 U/L (16-63) Alkaline Phosphatase 81 U/L (46-116) Total Protein 7.5 g/dL (6.4-8.2) Albumin 3.8 g/dL (3.4-5.0) Albumin/Globulin Ratio 1.0 (1.0-1.7) Lipase 67914 U/L (73-393) Comment Review of Relevant I have reviewed the following items jc (where applicable) has been applied. Labs Laboratory Tests Test 09/15/18 12:20 09/15/18 12:30 09/16/18 07:10 Urine Collection Type Unknown Urine Color Yellow Urine Clarity Clear Urine pH 6.0 Urine Specific [place] >=1.030 Urine Protein 100 mg/dL (NEG-TRACE) Urine Glucose (UA) Negative mg/dL (NEG) Urine Ketones (Stick) Negative mg/dL (NEG) Urine Blood Negative (NEG) Urine Nitrite Negative (NEG) Urine Bilirubin Negative (NEG) Urine Urobilinogen Dipstick 0.2 mg/dL (0.2 mg/dL) Urine Leukocyte Esterase Negative (NEG) Urine RBC 3-5 /HPF (0-2) Urine WBC 0 /HPF (0-4) Urine Squamous Epithelial Cells Few /LPF Urine Bacteria 0 /HPF (0-FEW) Urine Hyaline Casts Few /HPF Urine Mucus Marked /LPF White Blood Count 12.1 x10^3/uL (4.0-11.0) 7.2 x10^3/uL (4.0-11.0) Red Blood Count 5.03 x10^6/uL (4.30-5.70) 4.88 x10^6/uL (4.30-5.70) Hemoglobin 13.6 g/dL (13.0-17.5) 13.2 g/dL (13.0-17.5) Hematocrit 42.0 % (39.0-53.0) 40.7 % (39.0-53.0) Mean Corpuscular Volume 84 fL (79-100) 84 fL (79-100) Mean Corpuscular Hemoglobin 27 pg (25-35) 27 pg (25-35) Mean Corpuscular Hemoglobin Concent 32 g/dL (31-37) 33 g/dL (31-37) Red Cell Distribution Width 14.1 % (11.5-14.5) 14.1 % (11.5-14.5) Platelet Count 295 x10^3/uL (140-400) 268 x10^3/uL (140-400) Neutrophils (%) (Auto) 90 % (31-73) 71 % (31-73) Lymphocytes (%) (Auto) 5 % (24-48) 19 % (24-48) Monocytes (%) (Auto) 6 % (0-9) 9 % (0-9) Eosinophils (%) (Auto) 0 % (0-3) 0 % (0-3) Basophils (%) (Auto) 0 % (0-3) 0 % (0-3) Neutrophils # (Auto) 10.8 x10^3uL (1.8-7.7) 5.1 x10^3uL (1.8-7.7) Lymphocytes # (Auto) 0.6 x10^3/uL (1.0-4.8) 1.4 x10^3/uL (1.0-4.8) Monocytes # (Auto) 0.7 x10^3/uL (0.0-1.1) 0.7 x10^3/uL (0.0-1.1) Eosinophils # (Auto) 0.0 x10^3/uL (0.0-0.7) 0.0 x10^3/uL (0.0-0.7) Basophils # (Auto) 0.0 x10^3/uL (0.0-0.2) 0.0 x10^3/uL (0.0-0.2) Segmented Neutrophils % 77 % (35-66) Band Neutrophils % 14 % (0-9) Lymphocytes % 6 % (24-48) Atypical Lymphocytes % (Manual) 2 % (0-0) Monocytes % 1 % (0-10) Platelet Estimate Adequate (ADEQUATE) Large Platelets Few Hypochromasia Slight Stomatocytes Few Prothrombin Time 11.1 SEC (11.7-14.0) Prothromb Time International Ratio 0.8 (0.8-1.1) Sodium Level 136 mmol/L (136-145) Potassium Level 4.0 mmol/L (3.5-5.1) Chloride Level 98 mmol/L (98-107) Carbon Dioxide Level 29 mmol/L (21-32) Anion Gap 9 (6-14) Blood Urea Nitrogen 13 mg/dL (8-26) Creatinine 0.9 mg/dL (0.7-1.3) Estimated GFR (Cockcroft-Gault) 123.4 BUN/Creatinine Ratio 14 (6-20) Glucose Level 132 mg/dL (70-99) Calcium Level 9.3 mg/dL (8.5-10.1) Total Bilirubin 0.5 mg/dL (0.2-1.0) Aspartate Amino Transf (AST/SGOT) 34 U/L (15-37) Alanine Aminotransferase (ALT/SGPT) 38 U/L (16-63) Alkaline Phosphatase 81 U/L (46-116) Total Protein 7.5 g/dL (6.4-8.2) Albumin 3.8 g/dL (3.4-5.0) Albumin/Globulin Ratio 1.0 (1.0-1.7) Lipase 88565 U/L (73-393) Laboratory Tests Test 09/15/18 12:20 09/15/18 12:30 09/16/18 07:10 Urine Collection Type Unknown Urine Color Yellow Urine Clarity Clear Urine pH 6.0 Urine Specific [place] >=1.030 Urine Protein 100 mg/dL (NEG-TRACE) Urine Glucose (UA) Negative mg/dL (NEG) Urine Ketones (Stick) Negative mg/dL (NEG) Urine Blood Negative (NEG) Urine Nitrite Negative (NEG) Urine Bilirubin Negative (NEG) Urine Urobilinogen Dipstick 0.2 mg/dL (0.2 mg/dL) Urine Leukocyte Esterase Negative (NEG) Urine RBC 3-5 /HPF (0-2) Urine WBC 0 /HPF (0-4) Urine Squamous Epithelial Cells Few /LPF Urine Bacteria 0 /HPF (0-FEW) Urine Hyaline Casts Few /HPF Urine Mucus Marked /LPF White Blood Count 12.1 x10^3/uL (4.0-11.0) 7.2 x10^3/uL (4.0-11.0) Red Blood Count 5.03 x10^6/uL (4.30-5.70) 4.88 x10^6/uL (4.30-5.70) Hemoglobin 13.6 g/dL (13.0-17.5) 13.2 g/dL (13.0-17.5) Hematocrit 42.0 % (39.0-53.0) 40.7 % (39.0-53.0) Mean Corpuscular Volume 84 fL (79-100) 84 fL (79-100) Mean Corpuscular Hemoglobin 27 pg (25-35) 27 pg (25-35) Mean Corpuscular Hemoglobin Concent 32 g/dL (31-37) 33 g/dL (31-37) Red Cell Distribution Width 14.1 % (11.5-14.5) 14.1 % (11.5-14.5) Platelet Count 295 x10^3/uL (140-400) 268 x10^3/uL (140-400) Neutrophils (%) (Auto) 90 % (31-73) 71 % (31-73) Lymphocytes (%) (Auto) 5 % (24-48) 19 % (24-48) Monocytes (%) (Auto) 6 % (0-9) 9 % (0-9) Eosinophils (%) (Auto) 0 % (0-3) 0 % (0-3) Basophils (%) (Auto) 0 % (0-3) 0 % (0-3) Neutrophils # (Auto) 10.8 x10^3uL (1.8-7.7) 5.1 x10^3uL (1.8-7.7) Lymphocytes # (Auto) 0.6 x10^3/uL (1.0-4.8) 1.4 x10^3/uL (1.0-4.8) Monocytes # (Auto) 0.7 x10^3/uL (0.0-1.1) 0.7 x10^3/uL (0.0-1.1) Eosinophils # (Auto) 0.0 x10^3/uL (0.0-0.7) 0.0 x10^3/uL (0.0-0.7) Basophils # (Auto) 0.0 x10^3/uL (0.0-0.2) 0.0 x10^3/uL (0.0-0.2) Segmented Neutrophils % 77 % (35-66) Band Neutrophils % 14 % (0-9) Lymphocytes % 6 % (24-48) Atypical Lymphocytes % (Manual) 2 % (0-0) Monocytes % 1 % (0-10) Platelet Estimate Adequate (ADEQUATE) Large Platelets Few Hypochromasia Slight Stomatocytes Few Prothrombin Time 11.1 SEC (11.7-14.0) Prothromb Time International Ratio 0.8 (0.8-1.1) Sodium Level 136 mmol/L (136-145) Potassium Level 4.0 mmol/L (3.5-5.1) Chloride Level 98 mmol/L (98-107) Carbon Dioxide Level 29 mmol/L (21-32) Anion Gap 9 (6-14) Blood Urea Nitrogen 13 mg/dL (8-26) Creatinine 0.9 mg/dL (0.7-1.3) Estimated GFR (Cockcroft-Gault) 123.4 BUN/Creatinine Ratio 14 (6-20) Glucose Level 132 mg/dL (70-99) Calcium Level 9.3 mg/dL (8.5-10.1) Total Bilirubin 0.5 mg/dL (0.2-1.0) Aspartate Amino Transf (AST/SGOT) 34 U/L (15-37) Alanine Aminotransferase (ALT/SGPT) 38 U/L (16-63) Alkaline Phosphatase 81 U/L (46-116) Total Protein 7.5 g/dL (6.4-8.2) Albumin 3.8 g/dL (3.4-5.0) Albumin/Globulin Ratio 1.0 (1.0-1.7) Lipase 00881 U/L (73-393) Medications Current Medications Sodium Chloride 1,000 ml @ 1,000 mls/hr Q1H IV Last administered on 09/15/18at 12:29; Start 09/15/18 at 11:58; Stop 09/15/18 at 12:57; Status DC Prochlorperazine Edisylate (Compazine) 5 mg 1X ONCE IV Last administered on 09/15/18at 12:29; Start 09/15/18 at 12:00; Stop 09/15/18 at 12:01; Status DC Hyoscyamine (Anaspaz) 0.125 mg ONCE ONCE PO Last administered on 09/15/18at 12: 28; Start 09/15/18 at 12:00; Stop 09/15/18 at 12:01; Status DC Sodium Chloride 1,000 ml @ 125 mls/hr 1X ONCE IV ; Start 09/15/18 at 13:45; Stop 09/15/18 at 21:44; Status DC Morphine Sulfate (Morphine Sulfate) 4 mg 1X ONCE IV Last administered on at 14:09; Start 09/15/18 at 13:45; Stop 09/15/18 at 13:46; Status DC Ondansetron HCl (Zofran) 4 mg PRN Q8HRS PRN IV NAUSEA/VOMITING; Start 09/15/18 at 14:15; Stop 09/16/18 at 14:14 Morphine Sulfate (Morphine Sulfate) 4 mg PRN Q2HR PRN IV PAIN Last administered on 09/16/18at 02:44; Start 09/15/18 at 14:15; Stop 09/16/18 at 14:14 Sodium Chloride 1,000 ml @ 150 mls/hr Q6H40M IV Last administered on 09/16/18at 02:45; Start 09/15/18 at 14:06; Stop 09/16/18 at 14:05 Acetaminophen (Tylenol) 650 mg PRN Q4HRS PRN PO FEVER; Start 09/15/18 at 14:15; Stop 09/16/18 at 14:14 Iohexol (Omnipaque 300 Mg/ml) 75 ml 1X ONCE IV Last administered on 09/15/18at 14:28; Start 09/15/18 at 14:30; Stop 09/15/18 at 14:31; Status DC Info (CONTRAST GIVEN -- Rx MONITORING) 1 each PRN DAILY PRN MC SEE COMMENTS; Start 09/15/18 at 14:30; Stop 09/17/18 at 14:29 Multivitamins 10 ml/Thiamine HCl 100 mg/Folic Acid 1 mg/Sodium Chloride 1,011.2 ml @ 100 mls/ hr DAILY IV Last administered on 09/15/18at 15:39; Start 09/15/18 at 16:00; Stop 09/19/18 at 19:07 Folic Acid (Folic Acid) 1 mg DAILY PO ; Start 09/20/18 at 09:00 Lorazepam (Ativan) 4 mg PRN Q1HR PRN PO For CIWA 8-14; Start 09/15/18 at 15:00 Lorazepam (Ativan) 2 mg PRN Q1HR PRN IV For CIWA 8-14; Start 09/15/18 at 15:00 Haloperidol Lactate (Haldol Inj) 5 mg PRN Q4HRS PRN IVP Hallucinatns,Confusn, Delirium; Start 09/15/18 at 15:00 Diphenhydramine HCl (Benadryl) 25 mg PRN Q15MIN PRN IVP EPS symptoms 2'Haldol admin; Start 09/15/18 at 15:00 Clonidine HCl (Catapres) 0.1 mg PRN Q1HR PRN PO SBP > 180 or DBP > 100, MRX3; Start 09/15/18 at 15:00 Pantoprazole Sodium (PROTONIX VIAL for IV PUSH) 40 mg DAILYAC IVP ; Start at 07:30 Enoxaparin Sodium (Lovenox 40mg Syringe) 40 mg Q24H SQ Last administered on 09/15at 22:11; Start 09/15/18 at 21:00 Active Scripts Active Keflex (Cephalexin) 500 Mg Capsule 1 Cap PO TID 10 Days Vitals/I & O Vital Sign - Last 24 Hours 09/15/18 09/15/18 09/15/18 09/15/18 11:43 12:30 13:30 14:09 Temp 98.2 98.2 Pulse 75 74 66 Resp 18 18 18 18 B/P (MAP) 137/91 (106) 134/87 (103) 126/82 (97) Pulse Ox 100 98 100 99 O2 Delivery Room Air Room Air Room Air Room Air 09/15/18 09/15/18 09/15/18 09/15/18 14:15 15:00 15:47 18:13 Temp 98.1 98.1 Pulse 70 79 Resp 18 18 B/P (MAP) 132/79 (96) 119/94 (102) Pulse Ox 100 100 O2 Delivery Room Air Room Air Room Air Room Air 09/15/18 09/15/18 09/15/18 09/16/18 19:00 20:43 22:59 02:39 Temp 97.8 97.8 98.1 97.8 97.8 98.1 Pulse 70 76 60 Resp 18 18 18 B/P (MAP) 117/83 (94) 126/83 (97) 117/78 (91) Pulse Ox 95 95 96 100 O2 Delivery Room Air Room Air Room Air 09/16/18 09/16/18 09/16/18 02:44 03:14 07:00 Temp 98.1 98.1 Pulse 72 Resp 18 B/P (MAP) 116/86 (96) Pulse Ox 100 100 99 O2 Delivery Room Air Room Air Intake and Output 09/15/18 09/15/18 09/16/18 14:59 22:59 06:59 Intake Total 1000 ml Balance 1000 ml ROOPA CASE MD Sep 16, 2018 08:04
[2018-09-16] MEDS ORDERED: DEXTROSE 50% 25 GM / 50ML DISP.SYRIN. IV PRN (08:15)
[2018-09-16] MEDS: INSULIN LISPRO 300 UNITS/3 ML INSULN.PEN. SQ SCH ×3 (08:15→17:12)
[2018-09-16] MEDS: MULTIVIT INFUSN,ADULT 4,VIT K 10 ML, THIAMINE INJ 100 MG, FOLIC ACID INJ 1 MG in IV NOR... IV SCH (08:30)
[2018-09-16 08:34] LABS: CHOLESTEROL/HDL RATIO 2.2
[2018-09-16 09:28] LABS: BARBITURATES NEG (NEG); BENZODIAZEPINES POS (NEG); CANNABINOIDS POS (NEG); COCAINE POS (NEG); METHADONE NEG (NEG); OPIATES NEG (NEG); PHENCYCLIDINE NEG (NEG)
[2018-09-16 09:30] LABS: AMPHETAMINE/METHAMPHETAMINE NEG (NEG)
--- NOTE | 2018-09-16 09:33 | PDOC2 ---
GI CONSULT Reason For Consult: acute pancreatitis HPI: HPI: 27 y/o male admitted through ER. Girlfriend and two children present during interview. Reports acute onset of stabbing epigastric pain on Sunday morning. Associated w/ n/v later that night. In ER, noted w/ elevated lipase and changes of pancreatitis on CT. Pain improved (though still needs IV pain meds), n/v resolved. Tolerating clears. Denies reflux/heartburn, dysphagia, chronic n/v or abd pain, hematemesis, hematochezia, melena, diarrhea, constipation, or weight loss. No previous EGD or colonoscopy. No pancreas, liver, GB, or PUD history. No NSAIDs. Drinks two "tall cans" of beer 4 times weekly. PMH: PMH: denies FH: Family History: Other (aunt - alcoholism, pancreatitis) Social History: Smoke: <1 pack per day ALCOHOL: other (two "tall" beers 4 times weekly) ROS: GEN: Denies fevers, chills, sweats HEENT: Denies blurred vision, sore throat CV: Denies chest pain RESP: Denies shortness of air, cough GI: Per HPI : Denies hematuria, dysuria ENDO: Denies weight changes NEURO: Denies confusion, dizziness MSK: Denies weakness, joint pain/swelling SKIN: Denies jaundice, pruritus Vitals: Vitals: Vital Signs Date Time Temp Pulse Resp B/P (MAP) Pulse Ox O2 Delivery O2 Flow Rate FiO2 09/16/18 09:11 99 Room Air 09/16/18 07:00 98.1 72 18 116/86 (96) 98.1 Labs: Labs: Laboratory Tests Test 09/15/18 12:20 09/15/18 12:30 09/16/18 07:10 09/16/18 08:28 Urine Collection Type Unknown Urine Color Yellow Urine Clarity Clear Urine pH 6.0 Urine Specific [place] >=1.030 Urine Protein 100 mg/dL (NEG-TRACE) Urine Glucose (UA) Negative mg/dL (NEG) Urine Ketones (Stick) Negative mg/dL (NEG) Urine Blood Negative (NEG) Urine Nitrite Negative (NEG) Urine Bilirubin Negative (NEG) Urine Urobilinogen Dipstick 0.2 mg/dL (0.2 mg/dL) Urine Leukocyte Esterase Negative (NEG) Urine RBC 3-5 /HPF (0-2) Urine WBC 0 /HPF (0-4) Urine Squamous Epithelial Cells Few /LPF Urine Bacteria 0 /HPF (0-FEW) Urine Hyaline Casts Few /HPF Urine Mucus Marked /LPF White Blood Count 12.1 x10^3/uL (4.0-11.0) 7.2 x10^3/uL (4.0-11.0) Red Blood Count 5.03 x10^6/uL (4.30-5.70) 4.88 x10^6/uL (4.30-5.70) Hemoglobin 13.6 g/dL (13.0-17.5) 13.2 g/dL (13.0-17.5) Hematocrit 42.0 % (39.0-53.0) 40.7 % (39.0-53.0) Mean Corpuscular Volume 84 fL (79-100) 84 fL (79-100) Mean Corpuscular Hemoglobin 27 pg (25-35) 27 pg (25-35) Mean Corpuscular Hemoglobin Concent 32 g/dL (31-37) 33 g/dL (31-37) Red Cell Distribution Width 14.1 % (11.5-14.5) 14.1 % (11.5-14.5) Platelet Count 295 x10^3/uL (140-400) 268 x10^3/uL (140-400) Neutrophils (%) (Auto) 90 % (31-73) 71 % (31-73) Lymphocytes (%) (Auto) 5 % (24-48) 19 % (24-48) Monocytes (%) (Auto) 6 % (0-9) 9 % (0-9) Eosinophils (%) (Auto) 0 % (0-3) 0 % (0-3) Basophils (%) (Auto) 0 % (0-3) 0 % (0-3) Neutrophils # (Auto) 10.8 x10^3uL (1.8-7.7) 5.1 x10^3uL (1.8-7.7) Lymphocytes # (Auto) 0.6 x10^3/uL (1.0-4.8) 1.4 x10^3/uL (1.0-4.8) Monocytes # (Auto) 0.7 x10^3/uL (0.0-1.1) 0.7 x10^3/uL (0.0-1.1) Eosinophils # (Auto) 0.0 x10^3/uL (0.0-0.7) 0.0 x10^3/uL (0.0-0.7) Basophils # (Auto) 0.0 x10^3/uL (0.0-0.2) 0.0 x10^3/uL (0.0-0.2) Segmented Neutrophils % 77 % (35-66) Band Neutrophils % 14 % (0-9) Lymphocytes % 6 % (24-48) Atypical Lymphocytes % (Manual) 2 % (0-0) Monocytes % 1 % (0-10) Platelet Estimate Adequate (ADEQUATE) Large Platelets Few Hypochromasia Slight Stomatocytes Few Prothrombin Time 11.1 SEC (11.7-14.0) Prothromb Time International Ratio 0.8 (0.8-1.1) Sodium Level 136 mmol/L (136-145) 141 mmol/L (136-145) Potassium Level 4.0 mmol/L (3.5-5.1) 4.1 mmol/L (3.5-5.1) Chloride Level 98 mmol/L (98-107) 103 mmol/L (98-107) Carbon Dioxide Level 29 mmol/L (21-32) 29 mmol/L (21-32) Anion Gap 9 (6-14) 9 (6-14) Blood Urea Nitrogen 13 mg/dL (8-26) 4 mg/dL (8-26) Creatinine 0.9 mg/dL (0.7-1.3) 0.9 mg/dL (0.7-1.3) Estimated GFR (Cockcroft-Gault) 123.4 123.4 BUN/Creatinine Ratio 14 (6-20) 4 (6-20) Glucose Level 132 mg/dL (70-99) 89 mg/dL (70-99) Calcium Level 9.3 mg/dL (8.5-10.1) 8.4 mg/dL (8.5-10.1) Total Bilirubin 0.5 mg/dL (0.2-1.0) 0.7 mg/dL (0.2-1.0) Aspartate Amino Transf (AST/SGOT) 34 U/L (15-37) 21 U/L (15-37) Alanine Aminotransferase (ALT/SGPT) 38 U/L (16-63) 26 U/L (16-63) Alkaline Phosphatase 81 U/L (46-116) 67 U/L (46-116) Total Protein 7.5 g/dL (6.4-8.2) 6.4 g/dL (6.4-8.2) Albumin 3.8 g/dL (3.4-5.0) 3.0 g/dL (3.4-5.0) Albumin/Globulin Ratio 1.0 (1.0-1.7) 0.9 (1.0-1.7) Lipase 71470 U/L (73-393) 4862 U/L (73-393) Triglycerides Level 79 mg/dL (0-150) Cholesterol Level 172 mg/dL (0-200) LDL Cholesterol, Calculated 77 mg/dL (0-100) VLDL Cholesterol, Calculated 16 mg/dL (0-40) Non-HDL Cholesterol Calculated 93 mg/dL (0-129) HDL Cholesterol 79 mg/dL (40-60) Cholesterol/HDL Ratio 2.2 Glucose (Fingerstick) 132 mg/dL (70-99) Allergies: Coded Allergies: No Known Drug Allergies (Unverified , 06/20/16) Medications: Current Medications Medications (Trade) Dose Ordered Sig/Rohith Route PRN Reason Start Time Stop Time Status Last Admin Dose Admin Sodium Chloride 1,000 ml @ 1,000 mls/hr Q1H IV 09/15/18 11:58 09/15/18 12:57 DC 09/15/18 12:29 Prochlorperazine Edisylate (Compazine) 5 mg 1X ONCE IV 09/15/18 12:00 09/15/18 12:01 DC 09/15/18 12:29 Hyoscyamine (Anaspaz) 0.125 mg ONCE ONCE PO 09/15/18 12:00 09/15/18 12:01 DC 09/15/18 12:28 Morphine Sulfate (Morphine Sulfate) 4 mg 1X ONCE IV 09/15/18 13:45 09/15/18 13:46 DC 09/15/18 14:09 Morphine Sulfate (Morphine Sulfate) 4 mg PRN Q2HR PRN IV PAIN 09/15/18 14:15 09/16/18 14:14 09/16/18 08:38 Sodium Chloride 1,000 ml @ 150 mls/hr Q6H40M IV 09/15/18 14:06 09/16/18 14:05 09/16/18 02:45 Iohexol (Omnipaque 300 Mg/ml) 75 ml 1X ONCE IV 09/15/18 14:30 09/15/18 14:31 DC 09/15/18 14:28 Multivitamins 10 ml/Thiamine HCl 100 mg/Folic Acid 1 mg/Sodium Chloride 1,011.2 ml @ 100 mls/ hr DAILY IV 09/15/18 16:00 09/19/18 19:07 09/16/18 08:30 Pantoprazole Sodium (PROTONIX VIAL for IV PUSH) 40 mg DAILYAC IVP 09/16/18 07:30 09/16/18 08:36 Enoxaparin Sodium (Lovenox 40mg Syringe) 40 mg Q24H SQ 09/15/18 21:00 09/15/18 22:11 Imaging: Imaging: Acute Abd Series IMPRESSION: 1. No acute cardiopulmonary findings. 2. Nonspecific bowel gas pattern. Abd US IMPRESSION: 1. The pancreas could not be visualized due to bowel gas. 2. No evidence of gallstones. CT A/P IMPRESSION: 1. Severe inflammatory fat stranding identified about the pancreas likely acute pancreatitis. Also noted likely hepatic steatosis. PE: GEN: NAD HEENT: Atraumatic, PERRL LUNGS: CTAB HEART: RRR ABD: quiet, soft, not particularly tender EXTREMITY: No edema SKIN: No rashes, no jaundice NEURO/PSYCH: A & O 3 A/P: A/P: Pancreatitis - first episode Hepatic steatosis CRC screen - average risk FH alcoholism/pancreatitis -- Seems possibly related to alcohol. Pain improved w/ meds, tolerating clears. Lipase falling, LFTs and WBC normal. Calcium and lipid panel ok. Seems reasonable to keep to clears for now. Not sure he needs PPI but if continues, could change to PO. DARRYL ALEXANDER Sep 16, 2018 09:33
[2018-09-16 11:00] VITALS: BP 114/73
--- NOTE | 2018-09-16 13:30 | NUR ---
SW following for discharge planning. Discussed with RN, pt on clear liquid diet. SW met with pt to discuss self pay status, SW gave self pay resources. Pt denied any further needs from SW. RN notified.
[2018-09-16 15:00] VITALS: BP 118/83
[2018-09-16] MEDS ORDERED: ONDANSETRON PF 4 MG/2 ML VIAL. IV PRN (15:30)
[2018-09-16 19:00] VITALS: BP 127/82
[2018-09-16] MEDS ORDERED: NICOTINE 14MG PATCH. TD SCH (19:30)
[2018-09-16] MEDS: ENOXAPARIN 40 MG/0.4 ML SYRINGE. SQ SCH (20:31)
[2018-09-16 23:00] VITALS: BP 130/90
[2018-09-17] MEDS: MORPHINE SULFATE 4 MG/ML VIAL. IV PRN (00:16)
[2018-09-17 03:00] VITALS: BP 127/95
[2018-09-17] MEDS: INSULIN LISPRO 300 UNITS/3 ML INSULN.PEN. SQ SCH ×3 (06:00→12:00)
[2018-09-17 07:00] VITALS: BP 121/85
[2018-09-17] MEDS ORDERED: PANTOPRAZOLE IV PUSH 40 MG VIAL. IVP SCH (07:30)
[2018-09-17] MEDS: MULTIVIT INFUSN,ADULT 4,VIT K 10 ML, THIAMINE INJ 100 MG, FOLIC ACID INJ 1 MG in IV NOR... IV SCH (08:14)
[2018-09-17 11:00] VITALS: BP 113/80
--- NOTE | 2018-09-17 11:16 | PDOC ---
Subjective: Subjective: No pain, tolerating PO, wants to go home. Ate pancakes and sausage and eggs this morning. Objective: Vital Signs: Vital Signs Date Time Temp Pulse Resp B/P (MAP) Pulse Ox O2 Delivery O2 Flow Rate FiO2 09/17/18 07:00 97.8 77 18 121/85 (97) 100 Room Air 97.8 Labs: Laboratory Tests Test 09/16/18 11:42 09/16/18 18:32 09/17/18 00:05 09/17/18 06:04 Glucose (Fingerstick) 73 mg/dL 93 mg/dL 95 mg/dL 79 mg/dL Test 09/17/18 08:15 Lipase 2108 U/L PE: GEN: NAD LUNGS: CTAB HEART: RRR ABD: S/ND/NT NEURO/PSYCH: A & O 3 A/P: Pancreatitis - likely alcohol Hepatic steatosis +substance abuse -- [place] 27802 to 4000 to 2000. DC per primary. Avoid alcohol. DARRYL ALEXANDER Sep 17, 2018 11:16
--- NOTE | 2018-09-17 13:00 | NUR ---
SW following. Discussed with RN, no SW needs. Anticipated pt will discharge today (09/17/18).
--- NOTE | 2018-09-17 13:40 | PDOC3 ---
Discharge Summary Visit Information Date of Admission: Sep 15, 2018 Date of Discharge: Sep 17, 2018 Admitting Diagnosis: Pancreatitis Final Diagnosis Pancreatitis Brief Hospital Course Allergies Allergies Coded Allergies Type Severity Reaction Last Updated Verified No Known Drug Allergies 06/20/16 No Vital Signs Vital Signs Date Time Temp Pulse Resp B/P (MAP) Pulse Ox O2 Delivery O2 Flow Rate FiO2 09/17/18 11:00 97.9 80 18 113/80 (91) 99 Room Air 97.9 Lab Results Laboratory Tests Test 09/16/18 07:10 09/16/18 08:28 09/16/18 11:42 09/16/18 18:32 White Blood Count 7.2 x10^3/uL (4.0-11.0) Red Blood Count 4.88 x10^6/uL (4.30-5.70) Hemoglobin 13.2 g/dL (13.0-17.5) Hematocrit 40.7 % (39.0-53.0) Mean Corpuscular Volume 84 fL (79-100) Mean Corpuscular Hemoglobin 27 pg (25-35) Mean Corpuscular Hemoglobin Concent 33 g/dL (31-37) Red Cell Distribution Width 14.1 % (11.5-14.5) Platelet Count 268 x10^3/uL (140-400) Neutrophils (%) (Auto) 71 % (31-73) Lymphocytes (%) (Auto) 19 % (24-48) Monocytes (%) (Auto) 9 % (0-9) Eosinophils (%) (Auto) 0 % (0-3) Basophils (%) (Auto) 0 % (0-3) Neutrophils # (Auto) 5.1 x10^3uL (1.8-7.7) Lymphocytes # (Auto) 1.4 x10^3/uL (1.0-4.8) Monocytes # (Auto) 0.7 x10^3/uL (0.0-1.1) Eosinophils # (Auto) 0.0 x10^3/uL (0.0-0.7) Basophils # (Auto) 0.0 x10^3/uL (0.0-0.2) Sodium Level 141 mmol/L (136-145) Potassium Level 4.1 mmol/L (3.5-5.1) Chloride Level 103 mmol/L (98-107) Carbon Dioxide Level 29 mmol/L (21-32) Anion Gap 9 (6-14) Blood Urea Nitrogen 4 mg/dL (8-26) Creatinine 0.9 mg/dL (0.7-1.3) Estimated GFR (Cockcroft-Gault) 123.4 BUN/Creatinine Ratio 4 (6-20) Glucose Level 89 mg/dL (70-99) Calcium Level 8.4 mg/dL (8.5-10.1) Total Bilirubin 0.7 mg/dL (0.2-1.0) Aspartate Amino Transf (AST/SGOT) 21 U/L (15-37) Alanine Aminotransferase (ALT/SGPT) 26 U/L (16-63) Alkaline Phosphatase 67 U/L (46-116) Total Protein 6.4 g/dL (6.4-8.2) Albumin 3.0 g/dL (3.4-5.0) Albumin/Globulin Ratio 0.9 (1.0-1.7) Triglycerides Level 79 mg/dL (0-150) Cholesterol Level 172 mg/dL (0-200) LDL Cholesterol, Calculated 77 mg/dL (0-100) VLDL Cholesterol, Calculated 16 mg/dL (0-40) Non-HDL Cholesterol Calculated 93 mg/dL (0-129) HDL Cholesterol 79 mg/dL (40-60) Cholesterol/HDL Ratio 2.2 Lipase 4862 U/L (73-393) Glucose (Fingerstick) 132 mg/dL (70-99) 73 mg/dL (70-99) 93 mg/dL (70-99) Test 09/17/18 00:05 09/17/18 06:04 09/17/18 08:15 Glucose (Fingerstick) 95 mg/dL (70-99) 79 mg/dL (70-99) Lipase 2108 U/L (73-393) Laboratory Tests Test 09/16/18 18:32 09/17/18 00:05 09/17/18 06:04 09/17/18 08:15 Glucose (Fingerstick) 93 mg/dL (70-99) 95 mg/dL (70-99) 79 mg/dL (70-99) Lipase 2108 U/L (73-393) Brief Hospital Course 27yo M admitted with upper abdominal pain and nausea for the past 24-36 hours prior to admission, found with lipase > 12K and fat stranding surrounding pancreas. Patient has been unable to tolerate any oral intake since approximately noon 3/2 No blood in the emesis. No diarrhea. Patient had a beer prior to event, usually drinks heavily daily He is amenable to "stopping partying" today. Does not wish to be seen by PAT team. Day 2 he was 4/10 pain after morphine administration. Passing flatus, no BM. Day 3 able to eat solid food without pain at all Physical Exam General: Alert, Oriented X3, Cooperative, moderate distress Abdomen: Normal bowel sounds, Other (epigastric tender no rebound) Extremities: No cyanosis, No edema Skin: No breakdown Greater than 30 minutes spent on discharge including ETOH cessation counseling and polysubstance abuse cessation. Discharge Information Condition at Discharge: Improved Follow Up: Weeks (2) Disposition/Orders: D/C to Home Scheduled Cephalexin (Keflex) 500 Mg Capsule, 1 CAP PO TID for 10 Days Prescribed by: CHILO WAY APRN on 06/20/16 0141 ROOPA CASE MD Sep 17, 2018 13:40
[2018-09-17] MEDS ORDERED: TRAM50TA PO (13:41)
[2018-09-17] MEDS ORDERED: Nicotine 14MG TD (13:41)
--- NOTE | 2018-09-17 14:40 | NUR ---
Pt discharged home with no additional services, ambulated to hospital entrance accompanied by spouse. Discharge education and information regarding Dx provided to Pt who verbalized understanding and had no further questions. No changes from previous assessment, Pt [place] diet well and has no c/o pain or discomfort.
[2018-09-17] MEDS ORDERED: NICOTINE 14MG PATCH. TD SCH (21:00)
[2018-09-20] MEDS ORDERED: FOLIC ACID 1 MG TABLET. PO SCH (09:00)
== END 2018-09-17 14:40 | disposition home or self-care (01) | DRG 439 ==
LOC: ER 11:25 → 4 NORTH 14:16
PROVIDERS: ADMIT Family Medicine; ATTEND Family Medicine
DX: K85.20 Alcohol induced acute pancreatitis without necrosis or infection (principal); R65.10 Systemic inflammatory response syndrome (SIRS) of non-infectious origin without acute organ dysfunction; F10.10 Alcohol abuse, uncomplicated; F17.210 Nicotine dependence, cigarettes, uncomplicated; F19.10 Other psychoactive substance abuse, uncomplicated; K76.0 Fatty (change of) liver, not elsewhere classified; Z79.899 Other long term (current) drug therapy; Z71.41 Alcohol abuse counseling and surveillance of alcoholic
CPT/HCPCS: 36415; 74022; 74177; 76705; 80053; 80061; 80307; 81001; 82962; 83690; 85007; 85025; 85610; 96374; 96375; C9113; J0780; J1650; J1815; J2270; J7030; Q9967; 99285-25